=== PATIENT | female | born 1985 ===

== ENCOUNTER 2025-01-07 10:51 | Outpatient (AMB) | payer OTHER, SELFPAY ==
--- NOTE | 2025-01-07 11:16 | A.OFFVIS_ITS ---
Intake Visit Reasons: 6m sz Accompanied by: Staff member Allergies No Known Allergies Allergy (Verified 01/07/25 11:22) Medication List - Last Reconciled 01/07/25 by Bessy Barnhart CNP cholecalciferol (vitamin D3) 50 mcg PO DAILY docusate sodium mL PO fludrocortisone 0.1 mg PO DAILY fluticasone propionate 50 mcg/actuation sprays intranasal lactulose mL PO levonorgestrel-ethinyl estrad 0.15 mg-30 mcg (91) 1 tab PO DAILY levothyroxine 75 mcg PO DAILY midodrine 5 mg PO BID omeprazole 20 mg PO DAILY quetiapine 25 mg PO BID trazodone 100 mg PO BEDTIME PRN valproic acid (as sodium salt) mg PO HPI Comments Details: 39-year-old woman with 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 She was here with staff member. She was doing okay. No recent seizures. She needed refill on valproic acid. [facility] Medical History (Updated 01/07/25 @ 11:21 by Bessy Barnhart CNP) Seizure disorder Chronic static encephalopathy Review of Systems Const Denies chills, Denies daytime sleepiness, Denies difficulty sleeping, Denies fatigue, Denies fever(s), Denies frequent falls, Denies headache(s), Denies increased appetite, Denies poor appetite, Denies snoring, Denies weakness, Denies weight gain and Denies weight loss ENT Denies vertigo, Denies dizziness and Denies headache(s) Card Denies chest pain at rest, Denies chest pain with activity, Denies syncope, Denies leg edema and Denies palpitations Resp Denies snoring GI Denies constipation, Denies heartburn, Denies diarrhea and Denies nausea Denies urinary frequency, Denies urinary incontinence and Denies urinary urgency Musc Denies numbness and Denies tingling Skin/Breast Denies dry skin and Denies rash Neuro Denies vertigo, Denies dizziness, Denies syncope, Denies frequent falls, Denies headache(s), Denies lack of coordination, Denies memory loss, Denies numbness, Denies restless legs, Denies seizure-like activity, Denies tingling, Denies paresthesias, Denies tremor(s) and Denies weakness Psych Denies anxiety, Denies depression, Denies auditory hallucinations, Denies memory loss, Denies visual hallucinations and Denies suicidal ideation Endo Denies fatigue and Denies palpitations Physical Exam Const Other: General Appearance:?no acute distress. Skin:? no rashes, no significant birthmarks. Heart:? S1, S2 normal, no murmurs. Lungs:? clear anteriorly and posteriorly. Extremities:? no edema. Psych:? alert Neuro Other: Mental Status:?Alert and awake, not talking or following commands Cranial Nerves:?Pupils are equal, round and reactive to light. External occular muscles are intact. Visual boykin are full. Face is symmetrical. Facial sensations are normal. Tongue is midline. Palate elevates symmetrically. Shoulder shrugging is normal. Hearing to bedside conversation is normal. Motor Examination:?Hyperreflexia of knees Gait Exam: Wheelchair Cerebellar Signs:?Unable to check Extrapyramidal System:?No tremor, rigidity with normal facial expressions.? Involuntary Movements:?No tremors seen.? Speech:?None.? Assessment & Plan Assessment & Plan (1) Chronic static encephalopathy: Code(s): G93.49 - Other encephalopathy Category: Medical Plan: . (2) Seizure disorder: Code(s): G40.909 - Epilepsy, unspecified, not intractable, without status epilepticus Category: Medical Plan: Continue valproic acid 250mg/5mL solution 10mL via G-tube twice a day. Medications: New valproic acid (as sodium salt) 10mL via G tube twice a day 500 mg (10 mL) feeding tube BID 600 mL 5RF 30 days Discontinued valproic acid (as sodium salt) Discontinued Reason: Order PO Coding Level of Care Code Est Pt Level 3 (04940) Diagnoses Chronic static encephalopathy G93.49 Seizure disorder G40.909
--- OUTSIDE RECORDS SUMMARY | 2025-01-07 11:38 | XMS_ITS | Clinical Summary ---
Author Organization [facility] Address [address] [facility] [[email or web address]] [address] [place] [address] Phone Care Team Providers Care Ehs Engineer Name Role Phone Alex Nino MD Primary Care Provider [phone] Allergies No known active allergies Medications valproic acid (DEPAKENE) 250 MG/5ML syrup 10 mL 2 (two) times a day Active traZODone (DESYREL) 50 MG tablet Take 1.5 tablets by mouth 1 (one) time each day Active omeprazole OTC (PriLOSEC OTC) 20 MG EC tablet 20 mg 1 (one) time each day Active lactulose (CHRONULAC) 10 GM/15ML solution 20 g at bed time Active guaiFENesin (ROBITUSSIN) 100 MG/5ML syrup Take 5 mL by mouth 3 (three) times a day Active fluticasone (FLONASE) 50 MCG/ACT nasal spray Administer 2 sprays into each nostril every morning Active ferrous sulfate 220 (44 Fe) MG/5ML solution Take 5 mL by mouth 2 (two) times a day Active Docusate Sodium (DSS) 100 MG capsule at bed time Active Dimethicone-Zin c Oxide-Vit A-D (A & D Zinc Oxide) cream Apply 1 each topically 0 Active Cholecalciferol 25 MCG/10ML liquid Take 1,000 Units by mouth 1 Active albuterol 0.63 MG/3ML nebulizer solution 4 (four) times a day Active acetaminophen (TYLENOL) 160 MG/5ML solution TAKE 20 ML VIA GASTRIC TUBE EVERY 8 HOURS NEEDED FOR FEVER >101, HEADACHE, PAIN.(IF FEVER >102.4 CALL MD) NOT TO EXCEED 3250MG PER 24 HOURS. SEE PAIN/FEVER PROTOCOLS. 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 She is dehydrated. She is on 2 seizure medication. So worried about seizure and electrolytes impablance from dehydration. Also worried about her UTI and Pneomonia getting worse as she is not getting her antibiotic also. Resolved Problems Problem Noted Date Diagnosed Date Resolved Date Surgical follow-up 09/16/2020 2 Immunizations Immunization Administration Dates Next Due Hepatitis B 09/14/2014,04/11/2012,08/03/2011 ,05/25/2011 Influenza TIV (IM) 04/13/2019,03/14/2011 PPD Test 06/09/2019, 8,06/21/2016,06/14/2015 ,09/14/2014,05/28/2013,05/27/2012, 1,12/01/2009 Pneumococcal Conjugate 13-Valent 06/03/2019 Pneumococcal Polysaccharide 04/15/2018 Td 06/25/2007 Tdap 08/06/2012 Social History Tobacco Use Types Packs/Day Years Used Date Smoking Tobacco: Never Alcohol Use Standard Drinks/Week Comments No 0 (1 standard drink = 0.6 oz pur e alcohol) Comments Unknown Sex and Gender Information Value Date Recorded Sex Assigned at Not on file Legal Sex Female 4:52 PM EST Gender Identity Not on file Sexual Orientation Not on file Last Filed Vital Signs Vital Sign Reading Time Taken Comments Blood Pressure 100/70 01/18/2022 8:15 AM EDT Pulse 88 01/18/2022 8:15 AM EDT Temperature - - Respiratory Rate - - Oxygen Saturation 99% 01/18/2022 8:15 AM EDT Inhaled Oxygen Concentration - - Weight 40.8 kg (90 lb) 01/16/2024 10:17 AM EDT Height 149.9 cm (4' 11 ) 01/16/2024 10:17 AM EDT Body Mass Index 18.18 01/16/2024 10:17 AM EDT Plan of Treatment Upcoming Encounters Date Type Department Care Team (Late st Contact Info) Description 01/14/2025 10:00 AM EDT Office Visit [facility] [id number] [phone] Alber Ward MD [address] [address] Health Maintenance Due Date Last Done Comments Hepatitis B Vaccine (1 of 3 - 19+ 3-dose series) 12/18/2002 09/14/2014, 04/11/2012, 08/03/2011, Additional history exists Influenza Vaccine (#1) 2025 , 05/20/2024, 03/20/2024, Additional history exists Pneumococcal Vaccine: Peds ( 0 to 5 Years) and At-Risk Patients (6 to 49 Years) (4 of 4 - PCV20 or PCV21) 12/18/2033 06/03/2019, 04/15/2018, 01/08/2013, Additional history exists Pneumococcal Vaccine: 50+ Years Discontinued 06/03/2019, 04/15/2018, 01/08/2013, Additional history exists Insurance [employer] Medicaid Care Teams Ehs Engineer Relationship Specialty Start Date End Date Alex Nino MD [address] [place] [id number] PCP - General 07/05/20
--- OUTSIDE RECORDS SUMMARY | 2025-01-07 11:38 | XMS_ITS | Data Portability ---
Author Organization KAREEM NEWMAN MD [facility], Main Office Address [address] [place] [address] Care Team Providers Care Telegraph Editor Name Role Phone MIGUELINA MONTIEL Primary Care Provider Assessment Encounter Date Assessment Date Assessment LastModified by Organization Details LastModified Time 09/03/2023 09/03/2023 AUDIO. pt home with nursing in [place] 10 min. [email or web address] Not available 09/03/2023 10:00:46 Plan of Treatment Reminders Order Date Submit Date Provider Last Modified By Organization Details Last Modified Time Details Appointments None record ed. Lab None record ed. Referral None record ed. Procedures None record ed. Surgeries None record ed. Imaging None record ed. Medication Orders None record ed. Patient TargetsNo targets recorded. Patient InstructionsNo instructions recorded. Reason for Referral None Reported. Problems Name Problem SNOMED Code Status Onset Date Resolution Date Notes Provider Name and Address Organization Details Recorded Time Bronchiec tasis 43180092 Active 2019 Bronchiect asis; Report Immunity to Registry: Yes; Notes: CT scan 01/2020; Not Available [facility] 4 06:58:11 Aspiratio n pneumonia 738182392 Active 2019 Aspiration pneumonia; snomeddesc ription: Aspiration pneumonia; Report Immunity to Registry: Yes; Notes: (MRSA Screen negative 2019); Not Available [facility] 4 06:58:11 Gastroeso phageal reflux disease without esophagit is 374894968 Active 2018 Gastro-eso phageal reflux disease without esophagiti s; snomeddesc ription: Gastroesop hageal reflux disease; Report Immunity to Registry: Yes; Not Available [facility] 4 06:58:11 Gastroeso phageal reflux disease 888837910 Active 2018 Gastroesop hageal reflux disease; snomeddesc ription: Gastroesop hageal reflux disease; Report Immunity to Registry: Yes; Not Available [facility] 4 06:58:11 Pneumonit is caused by inhaled substance 213801142 Active 2019 Pneumoniti s due to inhalation of food and vomit; snomeddesc ription: Aspiration pneumonia; Report Immunity to Registry: Yes; Notes: (MRSA Screen negative 2019); Not Available [facility] 4 06:58:12 Problem Notes None recorded. Medical Equipment None Reported. Medications Name Sig Start Date Stop Date Status Note LastModified by Organization Details LastModified Time quetiapin e 25 mg tablet active Not Available Not Available Not Available docusate sodium 50 mg/5 mL oral liquid 50 MG/5 ML Quantity : 946; Duration : 30; 0 refill(s ) active Not Available Not Available No t Available silver sulfadiaz ine 1 % topical cream active Not Available Not Available Not Available albuterol sulfate 2.5 mg/3 mL (0.083 %) solution for nebulizat ion 2.5 MG/3ML Quantity : 150; Duration : 25; 0 refill(s ) active Not Available Not Available No t Available trazodone 50 mg tablet 50 MG TABLET; Quantity : 28; Duration : 28; 0 refill(s ) active Not Available Not Available No t Available amoxicill in 250 mg-potass ium clavulana te 62.5 mg/5 mL oral suspensio n active Not Available Not Available Not Available midodrine 5 mg tablet HCL 5 MG TABLET; Quantity : 56; Duration : 28; 0 refill(s ) active Not Available Not Available No t Available clobetaso l 0.05 % topical cream 0.05 % Quantity : 30; Duration : 15; 0 refill(s ) active Not Available Not Available No t Available bacitraci n 500 unit/gram topical ointment active Not Available Not Available Not Available Enema Disposabl e 19 gram-7 gram/118 mL active Not Available Not Available Not Available Vitamin C 500 mg chewable tablet C 500 MG TABLET CHEW; Quantity : 28; Duration : 28; 0 refill(s ) active Not Available Not Available No t Available levothyro xine 25 mcg tablet 25 MCG TABLET; Quantity : 28; Duration : 28; 0 refill(s ) active Not Available Not Available No t Available dexametha sone 0.5 mg/5 mL oral solution 0.5 MG/5ML Quantity : 120; Duration : 2; 0 refill(s ) 02/01 completed Duration : 2; VACCINE_ IND: no; Not Available Not Available Not Available valproic acid (as sodium salt) 250 mg/5 mL oral solution 250 MG/5ML Quantity : 600; Duration : 30; 0 refill(s ) active Not Available Not Available No t Available bisacodyl 10 mg rectal supposito ry 10 MG Quantity : 12; Duration : 12; 0 refill(s ) active Not Available Not Available No t Available nystatin 100,000 unit/gram topical cream [id number]/G Quantity : 30; Duration : 15; 0 refill(s ) active Not Available Not Available No t Available Ear Drops (carbamid e peroxide) 6.5 % active Not Available Not Available Not Available sulfameth oxazole 200 mg-trimet hoprim 40 mg/5 mL oral suspensio n Sulfa/Tr im 200mg-40 mg/5ml 20cc NG daily 600 04/23 completed Duration : 30; VACCINE_ IND: no; SU_FULL_ NAME: Alejandro Thompson l; Not Available Not Available Not Available omeprazol e 20 mg capsule,d elayed release 20 mg Quantity : 25.2; Duration : 30; 0 refill(s ) 02/20 completed Duration : 30; VACCINE_ IND: no; Not Available Not Available Not Available lorazepam 1 mg tablet 1 MG TABLET; Quantity : 1; Duration : 1; 0 refill(s ) active Not Available Not Available No t Available azithromy christina 200 mg/5 mL oral suspensio n GIVE 12.5 ML VIA G TUBE FOR 1 DOSE TONIGHT 03/25/24 *DISCARD REMAINDE R* active Not Available Not Available No t Available levofloxa christina 750 mg tablet active Not Available Not Available No t Available fluticaso ne propionat e 50 mcg/actua tion nasal spray,srinivas pension active Not Available Not Available Not Available fludrocor tisone 0.1 mg tablet active Not Available Not Available Not Available amoxicill in 875 mg-potass ium clavulana te 125 mg tablet TAKE 1 TABLET VIA G TUBE TWO TIMES A DAY. START TONIGHT UNTIL FINISHED active Not Available Not Available No t Available Bactrim DS 800 mg-160 mg tablet 800 mg-160 mg Quantity : ; 0 refill(s ) 01/15 completed VACCINE_ IND: no; Not Available Not Available Not Available levalbute rol concentra te 1.25 mg/0.5 mL solution for nebulizat ion PLEASE SEE ATTACHED FOR DETAILED DIRECTIO NS active Not Available Not Available No t Available lactulose 10 gram/15 mL oral solution 10 G/15 ML Quantity : 1800; Duration : 30; 0 refill(s ) active Not Available Not Available No t Available calcium 500 mg/5 mL (as calcium carb 1,250 mg/5 mL) oral suspensio n 500 MG/5ML Quantity : 300; Duration : 30; 0 refill(s ) active Not Available Not Available No t Available Nyamyc 100,000 unit/gram topical powder [id number]/G Quantity : 60; Duration : 30; 0 refill(s ) 02/01 completed Duration : 30; VACCINE_ IND: no; Not Available Not Available Not Available Calcium-V itamin D Quantity : ; 0 refill(s ) 07/09 completed VACCINE_ IND: no; Not Available Not Available Not Available Flonase Quantity : ; 0 refill(s ) 07/09 completed VACCINE_ IND: no; Not Available Not Available Not Available omeprazol e Omeprazo le 2.5mg granules oral suspensi on; 20mg NG Daily 08/16 completed Duration : 30; VACCINE_ IND: no; SU_FULL_ NAME: Alejandro Thompson l; Not Available Not Available Not Available sodium chloride 7 % for nebulizat ion INHALE THE CONTENT OF 1 VIAL (4mls) VIA NEBULIZE R machine two (2) times a day WITH levalbut jaymie active Not Available Not Available No t Available Engerix-B (PF) 20 mcg/mL intramusc ular suspensio n Quantity : ; 0 refill(s ) active VACCINE_ IND: yes; Not Available Not Available Not Available omeprazol e 20 mg tablet,de layed release 20 mg Quantity : ; 0 refill(s ) 07/09 completed VACCINE_ IND: no; Not Available Not Available Not Available Prilosec 2.5 mg oral suspensio n,delayed release Omeprazo le 2.5mg granules oral suspensi on; 20mg NG Daily 01/15 completed VACCINE_ IND: no; SU_FULL_ NAME: Alejandro tavarez; Not Available Not Available Not Available Probiotic Formula Quantity : ; 0 refill(s ) 07/09 completed VACCINE_ IND: no; Not Available Not Available Not Available cholecalc iferol (vitamin D3) 125 mcg/mL (5,000 unit/mL) oral drops Quantity : ; 0 refill(s ) 07/09 completed VACCINE_ IND: no; Not Available Not Available Not Available Prevnar 13 (PF) 0.5 mL intramusc ular syringe - Quantity : ; 0 refill(s ) 07/09 completed VACCINE_ IND: yes; VACCINE_ NAME: Pneumoco ccal conjugat e PCV 13; SU_FULL_ NAME: Alejandro tavarez; VIS_DATE : 16:34:26 .0; Not Available Not Available Not Available Miconazor b AF 2 % topical powder 2 % Quantity : 71; Duration : 4; 0 refill(s ) active Not Available Not Available No t Available ferrous sulfate 220 mg (44 mg iron)/5 mL oral elixir 220 (44)/5 Quantity : 900; Duration : 30; 0 refill(s ) active Not Available Not Available No t Available Lactobaci llus acidophil us 0.5 mg (100 million cell) tablet PROBIOTI C TABLET; Quantity : 56; Duration : 28; 0 refill(s ) active Not Available Not Available No t Available Firvanq 25 mg/mL oral solution TAKE 5 ML BY MOUTH EVERY 6 HOURS FOR 8 DAYS. DISCARD ANY REMAINDE R active Not Available Not Available No t Available Fluzone Quad (P F) 60 mcg(15 mcgx4)/0. 5 mL intramusc ular syringe preserva tive-julio e quadriva lent Quantity : 0.5; Duration : 1; 0 refill(s ) 08/17 completed Duration : 1; VACCINE_ IND: no; VACCINE_ NAME: influenz a, injectab le, quadriva lent, preserva tive free; Not Available Not Available Not Available Children' s Acetamino phen 160 mg/5 mL oral liquid 160 MG/5ML Quantity : 54; Duration : 30; 0 refill(s ) active Not Available Not Available No t Available Pediatric D-Rogelio 10 mcg/mL (400 unit/mL) oral drops active Not Available Not Available Not Available Desitin Daily Defense 13 % topical cream active Not Available Not Available Not Available Vitals None Recorded Social History None recorded. Functional Status None recorded. Mental Status None recorded. Family History Nothing Reported Notes:Kidney Disease, Respon se Property: Yes; Medical History No medical history recorded. Gynecological HistoryNo gynecological history recorded. Obstetrics History GPAL:G 0 P 0 0 0 0 Past Encounters Encounter ID Performer Location Encounter Start Date Encounter Closed Date Diagnosis/Indication Diagnosis SNOMED-CT Code Diagnosis ICD10 Code Diagnosis Note [id number] Alejandro Hernandez MD Main Office [address] [place] [phone] 04/05/2023 09:59:46 04/09/2023 09:36:44 Aspiration pneumonia 906834953 J69.0 Sulfa/Trim 200mg-40mg /5ml 20cc NG daily 600 weight 48k;107 lbs( please send to Pharmacy [facility] )Recurrent aspiration pneumonia with decreased episodes while on on Bactrim suppressio n tx. Keep head 45 degrees elevated, and avoid flat position when changing pt. plan of care reviewed with staff Gastroesop hageal reflux disease 376998601 K21.9 Omeprazole 2.5mg granules oral suspension ; 20mg NG Daily( please send to [facility]) weight 48k;107 lbs( please send to Pharmacy [facility] )Recurrent aspiration pneumonia with decreased episodes while on on Bactrim suppressio n tx. Keep head 45 degrees elevated, and avoid flat position when changing pt. [id number] Alejandro Hernandez MD Main Office [address] [place] [address] 09/03/2023 09:22:02 09/03/2023 10:07:01 Aspiration pneumonia 401554382 J69.0 s/p Sulfa/Trim 200mg-40mg /5ml 20cc NG daily 600. d/c about 6 month agoto call if develops any new penumonia sx.weight 48k;107 lbs( please send to Pharmacy [facility] ) Keep head 45 degrees elevated, and avoid flat position when changing pt. plan of care reviewed with staff Gastroesop hageal reflux disease 568766154 K21.9 s/p Omeprazole 2.5mg granules oral suspension ; 20mg NG Daily( please send to [facility]). D/C on 06/2019 weight 48k;107 lbs( please send to Pharmacy [facility] )to call if needs new refill. Keep head 45 degrees elevated, and avoid flat position when changing pt. Health Concerns Section Related Observation LastModified by Organization Detai ls LastModified Time None Recorded Concern Status LastModified by Organization Details LastModified Time None Recorded Advance Directives Directive None Recorded Payers Insurance Date Sequence Insurance Name Policy Number Policy Nunez Covered Member ID Nunez Member ID Guarantor Name 08/30/2024 1 [facility] - [facility]) [facility] Valorie Carrera [id number] Valorie Carrera Notes Date Note Type Note Provider Name and Address Organization Details Recorded Time 04/05/2023 text/html f/u recurrent aspiration pneumonia. 18 min audioTelemedicine Visit. [place] at housing [place] with Nurse Mayra [phone], her pullman clerk who is assisting during the visit due to pt's disability;med list reviewed, and available notes reviewednursing will send available labsmed list reviewedon Bactrim suppression qd for years for prevention of pneumonia which had been helping and prevented pneumonias, bronchitis and hospitalizations.GERD. stable on Omeprazole which has helpedfemale patient with hx Cerebral Palsy, seizures and cognitive disabilities Adry gates [place] - ALEJANDRO HERNANDEZ MD [facility] 04/17/2023 13:17:26 09/03/2023 text/html f/u recurrent aspiration pneumonia.no pneumoniamed list reviewed, and available notes reviewedshe is not on Bactrim for months; nor Omeprazole. Omeprazole was d/c in 06/2023.doing wellmed list reviewedfemale patient with hx Cerebral Palsy, seizures and cognitive disabilities Alejandro Hernandez MD [address] [place] [address], [phone], KAREEM - ALEJANDRO HERNANDEZ MD [facility] 09/03/2023 10:02:11 OBGyn Episode No OBEpisode recorded.
--- OUTSIDE RECORDS SUMMARY | 2025-01-07 11:38 | XMS_ITS | Encounter Summary ---
Author Organization [facility] Address [address] [place] [address] Care Team Providers Care Accounting Technician Name Role Phone Alex Nino MD Primary Care Provider [phone] Reason for Visit * Reason Onset Date Comments faxed order 12/23/2024 [facility] Encounter Details Date Type Department Care Team (Late Contact Info) Description 12/23/2024 Telephone [facility] - [facility] [address] [place] [phone] Alex Nino MD [address] [place] [phone] faxed order ([facility]) Social History Tobacco Use Types Packs/Day Years Used Date Smoking Tobacco: Never Smokeless Tobacco: Never Alcohol Use Standard Drinks/Week Comments No 0 (1 standard drink = 0.6 oz pur e alcohol) Comments No Sex and Gender Information Value Date Recorded Sex Assigned at Not on file Legal Sex Female 2:00 AM EST Gender Identity Not on file Sexual Orientation Not on file documented as of this encounter Progress Notes * Hilaria Bennett - 12/23/2024 2:40 PM EDT faxed order from [facility] Placed in nurse's bin documented in this encounter Plan of Treatment Upcoming Encounters Date Type Department Care Team ([facility] Contact Info) Description 05/19/2025 11:00 AM EST Office Visit Internal Medicine - [address] [phone] Alex Nino MD [address] [place] [address] 06/29/2025 10:15 AM EST Office Visit [facility] Hematology Oncology [address] [place] [address] Nando Fernandez MD [address] [place] [address] documented as of this encounter Visit Diagnoses Not on filedocumented in this encounter Care Teams Accounting Technician Relationship Specialty Start Date End Date Alex Nino MD [address] [place] [id number] PCP - General 09/10/09 documented as of this encounter
--- OUTSIDE RECORDS SUMMARY | 2025-01-07 11:38 | XMS_ITS | Clinical Summary ---
Author Organization [facility] Address [address] [place] [address] Care Team Providers Care Plastics Nurse Name Role Phone Alex Nino MD Primary Care Provider [phone] Medications Medication Sig Dispensed Refills Start Date End Date Status Lactobacillus (ACIDOPHILUS) 0.5 MG TABS Take by mouth. 0 Active albuterol (PROVENTIL) (2.5 MG/3ML) 0.083% nebulizer solution Take 2.5 mg by nebulization every 6 (six) hours as needed for wheezing. 0 Active sulfamethoxazole-tr imethoprim (BACTRIM DS,SEPTRA DS) 800-160 MG per tablet Take 1 tablet by mouth 2 (two) times a day. 0 Active calcium carbonate (TUMS) 500 MG chewable tablet Chew 1 tablet by mouth daily. 0 Active Valproate Sodium (DEPAKENE PO) Take 500 mg by mouth. 0 Active ferrous sulfate 220 (44 Fe) MG/5ML solution Take 220 mg by mouth daily. 0 Active fluticasone (FLONASE) 50 MCG/ACT nasal spray spray/apply 1 spray in each nostril daily. 0 Active omeprazole (PriLOSEC) suspension 2 mg/mL (Compound) Take by mouth daily. 0 Acti ve traZODone (DESYREL) 50 MG tablet Take 50 mg by mouth every night at bedtime. 0 Active ascorbic acid (VITAMIN C) 500 MG tablet Take 500 mg by mouth daily. 0 Active vitamin D3 (CHOLECALCIFEROL) 10 MCG/ML LIQD Take by mouth daily. 0 Active Active Problems Problem Noted Date Diagnosed Date Thrombocytopenia 08/22/2020 Social History Tobacco Use Types Packs/Day Years Used Date Smoking Tobacco: Never Assessed Sex and Gender Information Value Date Recorded Sex Assigned at Not on file Gender Identity Not on file Sexual Orientation Not on file Last Filed Vital Signs Vital Sign Reading Time Taken Comments Blood Pressure - - Pulse - - Temperature - - Respiratory Rate - - Oxygen Saturation - - Inhaled Oxygen Concentration - - Weight 42.2 kg (93 lb 1.6 oz) 08/18/2020 1:54 PM EST Height 149.9 cm (4' 11 ) 08/18/2020 1:54 PM EST Body Mass Index 18.8 08/18/2020 1:54 PM EST Plan of Treatment Health Maintenance Due Date Last Done Comments Hepatitis B Vaccines (1 of 3 - 3-dose series) 1983 Hepatitis C Screening 1983 COVID-19 Vaccine (#1) 06/19/1984 Depression Screening 1995 Preventative Health Evaluation 12/18/2001 Cervical Cancer Screening (Pap Smear) 12/18/2004 DTap / Tdap / Td (2 - Td or Tdap) 08/06/2022 08/06/2012 Influenza Vaccine (#1) 2025 9, 03/14/2011 Pneumococcal Vaccine Aged Out 06/03/2019, 04/15/2018 No longer eligible based on patient's age to complete this topic RSV Ped < 20 months Aged Out No longe r eligible based on patient's age to complete this topic Care Teams Plastics Nurse Relationship Specialty Start Date End Date Alex Nino MD PCP - General Internal Medicine 06/03/20
--- OUTSIDE RECORDS SUMMARY | 2025-01-07 11:38 | XMS_ITS | Encounter Summary ---
Author Organization [facility] Address [address] [place] [address] Care Team Providers Care Tanning Consultant Name Role Phone Alex Nino MD Primary Care Provider [phone] Encounter Details Date Type Department Care Team Description 08/04/2020 [facility] Medical Records [address] [place] [address] Shannon Huddleston Social History Tobacco Use Types Packs/Day Years Used Date Smoking Tobacco: Never Smokeless Tobacco: Never Alcohol Use Standard Drinks/Week Comments No 0 (1 standard drink = 0.6 oz pur e alcohol) Sex Assigned at Date Recorded Not on file COVID-19 Exposure Response Date Recorded In the last month, have you been in contact with someone who was confirmed or suspected to have Coronavirus / COVID-19? No / Unsure 08/03/2020 10:42 AM EST documented as of this encounter Plan of Treatment Not on file documented as of this encounter Visit Diagnoses Not on filedocumented in this encounter Care Teams Tanning Consultant Relationship Specialty Start Date End Date Alex Nino MD [address] [place] [address] PCP - General 09/10/09 documented as of this encounter
== END 2025-01-07 11:30 | disposition home or self-care (01) ==
LOC: HO.HSM 10:51
PROVIDERS: PCP Internal Medicine; Referring Provider Internal Medicine; Visit Provider Registered Nurse
DX: G93.49 Other encephalopathy (principal); G40.909 Epilepsy, unspecified, not intractable, without status epilepticus
CPT/HCPCS: 99213

== ENCOUNTER → 2025-01-07 10:51 | Outpatient (BNVA) | payer OTHER, SELFPAY | PROVIDERS: PCP Internal Medicine; Referring Provider Internal Medicine; Visit Provider Registered Nurse | DX: G93.49 Other encephalopathy (principal); G40.909 Epilepsy, unspecified, not intractable, without status epilepticus | CPT/HCPCS: 99212 ==

== ENCOUNTER → 2025-04-02 14:14 | Outpatient (AMB) | payer OTHER, SELFPAY ==
--- NOTE | 2025-04-02 14:29 | MHC.OFFVIS ---
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 [facility] Medical History (Updated 01/07/25 @ 11:21 by Bessy Barnhart CNP) Seizure disorder Chronic static encephalopathy Physical Exam Neuro Other: Mental Status: Noncommunicative, continuosly chewing her mittens. Cranial Nerves: CN II: Visual boykin full to confrontation, visual acuity intact. CN III, IV, : Pupils equal, round, reactive to light and accommodation. Extraocular movements are normal. CN V: Facial sensation is normal. CN VII: Facial movements symmetrical. CN VIII: Hearing intact to bedside conversation is normal. CN IX, X: Palate elevates symmetrically. CN XI: Shoulder shrug and head turn symmetrical. CN XII: Tongue midline without atrophy or fasciculations. Intact to light touch, pinprick, and vibration. Romberg is negative. Extrapyramidal: Full facial expressions and blinking. No rigidity. Movements are appropriate with no tremor or abnormality. Assessment & Plan Assessment & Plan (1) Chronic static encephalopathy: Code(s): G93.49 - Other encephalopathy Category: Medical (2) Seizure disorder: Code(s): G40.909 - Epilepsy, unspecified, not intractable, without status epilepticus Category: Medical Plan Impression: a: Chronic static encephalopathy b: Complex partial seizure disorder Rec: Valproic acid susp, 5ml bid Coding Level of Care Code Est Pt Level 3 (67780) Diagnoses Chronic static encephalopathy G93.49 Seizure disorder G40.909
== END ==
LOC: HO.HSM 14:14
PROVIDERS: PCP Internal Medicine; Visit Provider Psychiatry & Neurology Neurology
DX: G93.49 Other encephalopathy (principal); G40.909 Epilepsy, unspecified, not intractable, without status epilepticus
CPT/HCPCS: 99213

== ENCOUNTER → 2025-04-02 14:14 | Outpatient (BNVA) | payer OTHER, SELFPAY | PROVIDERS: PCP Internal Medicine; Visit Provider Psychiatry & Neurology Neurology | DX: G93.49 Other encephalopathy (principal); G40.909 Epilepsy, unspecified, not intractable, without status epilepticus | CPT/HCPCS: 99212 ==